=== PATIENT | male | born 1965 | race Caucasian/White ===

== ENCOUNTER 2019-12-31 09:48 | Day surgery (SDC) | payer OTHER ==
[2019-12-26 11:17] LABS: HEMATOCRIT 40.1 % (37.9-51.0); HEMOGLOBIN 14.3 g/dL (13.5-17.0); MEAN CORPUSCULAR HEMOGLOBIN 30.1 pg (27.0-33.4); MEAN CORPUSCULAR HGB CONC 35.7 g/dL (32.0-36.0); MEAN CORPUSCULAR VOLUME 84 fl (80-97); PLATELET COUNT 178 10^3/uL (150-450); RED BLOOD COUNT 4.75 10^6/uL (4.35-5.55); RED CELL DISTRIBUTION WIDTH 14.9 % (11.5-14.0); WHITE BLOOD COUNT 7.4 10^3/uL (4.0-10.5)
[2019-12-26 11:24] LABS: APPEARANCE,URINE CLEAR; BILIRUBIN,URINE NEGATIVE (NEGATIVE); COLOR,URINE YELLOW; GLUCOSE, URINE NEGATIVE (NEGATIVE); KETONES,URINE NEGATIVE (NEGATIVE); LEUKOCYTE ESTERASE,URINE NEGATIVE (NEGATIVE); NITRITE,URINE NEGATIVE (NEGATIVE); PROTEIN,URINE NEGATIVE (NEGATIVE); URINE SPECIFIC GRAVITY 1.009; UROBILINOGEN,URINE NEGATIVE mg/dL (<2.0)
[2019-12-26 11:35] LABS: ANION GAP 14 (5-19); BLOOD UREA NITROGEN 14 mg/dL (7-20); CALCIUM 9.8 mg/dL (8.4-10.2); CARBON DIOXIDE 28 mmol/L (22-30); CHLORIDE 97 mmol/L (98-107); GLUCOSE 176 mg/dL (75-110); POTASSIUM 3.6 mmol/L (3.6-5.0)
--- NOTE | 2019-12-26 12:29 | RADIOLOGY REPORT (SQ) ---
EXAM DESCRIPTION: CHEST PA/LATERAL IMAGES COMPLETED DATE/TIME: 12/26/2019 10:48 am REASON FOR STUDY: PRE-OP COMPARISON: 02/26/2013 EXAM PARAMETERS: NUMBER OF VIEWS: two views TECHNIQUE: Digital Frontal and Lateral radiographic views of the chest acquired. RADIATION DOSE: NA LIMITATIONS: none FINDINGS: LUNGS AND PLEURA: No opacities, masses or pneumothorax. No pleural effusion. MEDIASTINUM AND HILAR STRUCTURES: No masses or contour abnormalities. HEART AND VASCULAR STRUCTURES: Heart normal size. No evidence for failure. BONES: No acute findings. HARDWARE: None in the chest. OTHER: No other significant finding. IMPRESSION: NO SIGNIFICANT RADIOGRAPHIC FINDING IN THE CHEST. TECHNICAL DOCUMENTATION: JOB ID: [id number] 2010 [employer]- All Rights Reserved Reading location - IP/workstation name: [email or web address]
--- NOTE | 2019-12-26 18:04 | EKG REPORT ---
SEVERITY:- BORDERLINE ECG - SINUS RHYTHM BORDERLINE R WAVE PROGRESSION, ANTERIOR LEADS : Confirmed by: Edilberto Whipple MD 26-Dec-2019 18:03:47
[~2019-12-31 09:48] MED LIST: CEFAZOLIN 2 GM/D5W RTU 2 GM/50 ML RTUPB IV PRN; DEXAMETHASONE SOD PHOSPHATE INJ 4 MG/1 ML VIAL ONE; FENTANYL CITRATE INJ/PF 100 MCG/2 ML AMPUL ONE; LACTATED RINGERS 1000 ML IV PRN; LIDOCAINE 0.5% INJ-PF (5 MG/ML) 50 ML SDV SUBCUT PRN; MIDAZOLAM 2 MG/2 ML INJ ONE; ONDANSETRON HCL INJ/PF 4 MG/2 ML SDV ONE; PROPOFOL INJ 200 MG/20 ML VIAL IV ONE; SUCCINYLCHOLINE CHLORIDE INJ 200 MG/10 ML VIAL ONE
[2019-12-31] MEDS ORDERED: CEFAZOLIN 2 GM/D5W RTU 2 GM/50 ML RTUPB IV ONE (10:05)
[2019-12-31] MEDS ORDERED: BUPIVACAINE HCL 0.5 % INJ/PF 30 ML SDV ONE ×2 (12:17→12:30)
[2019-12-31] MEDS ORDERED: LIDOCAINE 1% INJ-PF (10 MG/ML) 30 ML SDV ONE (12:17)
[2019-12-31] MEDS ORDERED: MEPERIDINE HCL/PF INJ 25 MG/1 ML DISP.SYRIN IV PRN (13:20)
[2019-12-31] MEDS ORDERED: FENTANYL CITRATE INJ/PF 100 MCG/2 ML AMPUL IV PRN ×3 (13:20)
[2019-12-31] MEDS ORDERED: MORPHINE SULFATE 10 MG/ML INJ IV PRN ×2 (13:20→14:06)
[2019-12-31] MEDS ORDERED: ONDANSETRON HCL INJ/PF 4 MG/2 ML SDV IV PRN (13:20)
[2019-12-31] MEDS ORDERED: PROMETHAZINE HCL INJ 25 MG/1 ML VIAL IV PRN ×2 (13:20)
[2019-12-31] MEDS ORDERED: DIPHENHYDRAMINE HCL 50 MG/ML VIAL IV PRN (13:20)
[2019-12-31] MEDS ORDERED: BUPIVACAINE HCL 0.5 % INJ/PF 30 ML SDV INFIL ONE (13:52)
--- NOTE | 2019-12-31 14:05 | Operative Report ---
Operative Report DATE OF SURGERY: 12/31/19 PREOPERATIVE DIAGNOSIS: Right third MCP joint osteoarthritis POSTOPERATIVE DIAGNOSIS: Same OPERATION: Right third MCP joint silicone arthroplasty SURGEON: EDENILSON JONES ANESTHESIA: GA COMPLICATIONS: None ESTIMATED BLOOD LOSS: Minimal PROCEDURE: Indication for above procedure: 54-year-old male with longstanding history of MCP joint osteoarthritis. Attempted conservative including anti-inflammatory medication, mobilization and injections which did provide some relief but not long-term symptomatic relief. Patient continued to have discomfort which was limiting his quality of life at that point decision was made to proceed with operative intervention. Risk and benefits were explained patient verbalized understanding consented for surgical procedure. Procedure In Detail: Patient was seen and evaluated in the preoperative holding area. The right upper extremity was initialized and marked. Patient received 2g of Ancef IV for bacterial prophylaxis. Patient was taken back to the operative room where transferred to the operative table and placed under general anesthesia. Once they were adequately anesthetized a nonsterile tourniquet was placed on the upper extremity. A surgical team debriefing was performed ensuring all instrumentation was available, the surgical procedure was discussed with possible concerns reviewed. The upper extremity was prepped with chlorhexidine and alcohol and draped in a sterile fashion. A timeout was done identifying correct patient, procedure and extremity everyone in attendance agree with this and verbalized no concerns. The extremity was exsanguinated the tourniquet was inflated to 250 mmHg. Longitudinal skin incision was made along the MCP joint. Blunt dissection was performed. Dorsal veins were retracted and small tributaries coagulated bipolar cautery. Extensor mechanism was then split midline and separately from the capsule. A longitudinal capsulotomy was then made and the collateral ligaments were recessed but not completely released. There was significant eburnation of the metacarpal head with no remaining cartilage noted and significant sclerosis along the proximal phalanx. With C arm guidance metacarpal resection was performed. The canal was started with the opening all along the metacarpal. Broaches began with a 0 broach up to 20 broach until good fit was noted and confirmed with C arm fluoroscopy. Then began preparation of the proximal phalanx with a starting awl increasing broach up to size 20. Once complete a trial implant was inserted. Patient had full range of motion with wrist flexion/extension and tenodesis. Implant was then removed. Wound was copiously irrigated with normal saline. Bone edges were smoothed to avoid irritation to the implant. C arm was obtained with the implant in position to confirm alignment. The [place] silicone MCP joint metacarpophalangeal implant, size 20 was then implanted with a smooth pickup. Final C arm was once again obtained confirming appropriate alignment. Patient had full range of motion with tenodesis. No instability was appreciated. The proper collateral ligaments were then repaired with interrupted 3-0 Ethibond suture. Capsule was closed with 3-0 Ethibond suture. Extensor tendon was closed with 3-0 Ethibond and 3-0 Vicryl suture. Wound was once again irrigated with normal saline. Tourniquet was deflated and peripheral bleeding was controlled with bipolar cautery into the wound was dry. Skin was closed with running subcuticular 4-0 Monocryl reinforced with Dermabond and Steri-Strips. Patient was placed in a volar splint with the MCP joints at 30 degrees of flexion with the IP joints free. Sponge counts, instrument counts, needle counts were correct. Patient was then awoken from anesthesia. Transferred from the operating room table to the operating room stretcher. There was no intraoperative complications patient tolerated procedure well stable to PACU. Postop plan: Patient follow the office in 2 weeks for wound check. Will begin physical therapy 2 weeks postoperative. Beginning with active and active assisted range of motion from 2-4 weeks postoperatively may begin passive range of motion 4 weeks postoperatively and strengthening at 6 weeks postoperatively.
[2019-12-31] MEDS ORDERED: OXYCODONE-ACETAMINOPHEN 5-325 MG TABLET PO PRN (14:06)
--- NOTE | 2019-12-31 14:06 | Discharge Summary ---
Discharge Summary (SDC) - Discharge Final Diagnosis: Right third MCP joint osteoarthritis Date of Surgery: 12/31/19 Discharge Date: 12/31/19 Condition: Good Treatment or Instructions: Schedule Follow Up w/ Dr. Zheng Das @ [facility] for Surgery to be seen in 10-14 days or as scheduled [place]: [place]: [place]: Ice and elevate Keep splint clean/dry/intact, do not remove. If your fingers become numb please unwrap the Harpreet wrap but leave the splint in place, if the sensation does not return within 30 minutes please return to the emergency department. May begin finger range of motion attempting to make full fist. Please use ibuprofen (Motrin or Advil) 600-800 mg every 8 hours as needed for pain or fever DO NOT TAKE w/ TORADOL may use once TORADOL complete. You may also use acetaminophen (Tylenol) 1000 mg every 4-6 hours as needed for pain or fever. Please be aware that many medications contain acetaminophen, do not exceed a total of 1000 mg of acetaminophen every 6 hours. If ibuprofen and acetaminophen are not sufficient for your pain you may take the Percocet/Be[place]ont. Please be aware that the Percocet/Beaumont does contain Tylenol. Stool softener of choice when on pain medication. USE OF ESJH-PZK-AARTLFC IBUPROFEN: Ibuprofen (Advil, Nuprin, Medipren, Motrin IB) is a medication for fever and pain control. In addition, it has anti- inflammatory effects which may be beneficial, especially in the treatment of injuries. It's best to take ibuprofen with food. Persons with ulcer disease or allergy to aspirin should notify their physician of this before taking ibuprofen. Ibuprofen can be given every four to six hours, for a total of four doses daily. Age Pain or fever dose Antiinflammatory dose 6-8 yr 200 mg (1 tab) 200 mg (1 tab) 9-11 yr 200 mg (1 tab) 200-400 mg (1-2 tab) 11-14 yr 200-400 mg (1-2 tab) 400 mg (2 tab) 15-adult 400 mg (2 tab) 600 mg (3 tab) ORAL NARCOTIC MEDICATION: You have been given a prescription for pain control. This medication is a narcotic. It's best taken with food, as nausea can result if taken on an empty stomach. Don't operate machinery or drive within six hours of taking this medication. Do not combine this medicine with alcohol, or with any medication which can cause sedation (such as cold tablets or sleeping pills) unless you get permission from the physician. Narcotics tend to cause constipation. If possible, drink plenty of fluids and eat a diet high in fiber and fruits. Please be aware that prescription narcotics also have the potential for abuse. People become addicted to these medications because of the general sense of wellbeing that they induce. This feeling along with a significant reduction in tension, anxiety, and aggression provides a stimulating seductive quality to these drugs. Once your pain is under control, we encourage you to discard your unused narcotics. Prescriptions: Ketorolac Tromethamine [Toradol 10 mg Tablet] 10 mg PO Q8HP PRN #12 tablet PRN Reason: Oxycodone HCl/Acetaminophen [Percocet 5-325 mg Tablet] 1 tab PO Q6 PRN #25 tab PRN Reason: Referrals: SENTHIL COOK PA [Primary Care Provider] - Discharge Diet: As Tolerated Respiratory Treatments at Home: Deep Breathing/Coughing, Incentive Spirometer Discharge Activity: No Lifting Over 10 Pounds, No Lifting/Push/Pulling Report the Following to Your Physician Immediately: Fever over 101 Degrees, Unusual Bleeding, Redness, Swelling, Warmth, Increased Soreness
[2019-12-31] MEDS ORDERED: PROPOFOL INJ 200 MG/20 ML VIAL IV ONE (14:14)
--- NOTE | 2019-12-31 14:21 | RADIOLOGY REPORT (SQ) ---
EXAM DESCRIPTION: HAND RIGHT 3 VIEWS; NO CHG FLUORO IMAGES COMPLETED DATE/TIME: 12/31/2019 2:11 pm REASON FOR STUDY: ARTHROPLASTY 3RD MCP M19.041 PRIMARY OSTEOARTHRITIS, RIGHT HAND M79.642 PAIN IN LEFT HAND COMPARISON: None. FLUOROSCOPY TIME: 21 seconds Spot images saved to PACS. TECHNIQUE: Intra-operative images acquired during surgical procedure to evaluate progress. NUMBER OF IMAGES: 3 LIMITATIONS: None. FINDINGS: Fluoroscopy was provided for intraoperative procedure. Please refer to the operative repo rt for further discussion. IMPRESSION: IMAGE(S) OBTAINED DURING PROCEDURE. COMMENT: Quality ID [id number]: Final reports for procedures using fluoroscopy that document radiation exp osure indices, or exposure time and number of fluorographic images (if radiation exposure indices are not available) Please consult full operative report of the attending physician for description of the procedure. TECHNICAL DOCUMENTATION: JOB ID: [id number] 2010 [employer]- All Rights Reserved Reading location - IP/workstation name: [email or web address]
--- NOTE | 2019-12-31 14:21 | RADIOLOGY REPORT (SQ) ---
EXAM DESCRIPTION: HAND RIGHT 3 VIEWS; NO CHG FLUORO IMAGES COMPLETED DATE/TIME: 12/31/2019 2:11 pm REASON FOR STUDY: ARTHROPLASTY 3RD MCP M19.041 PRIMARY OSTEOARTHRITIS, RIGHT HAND M79.642 PAIN IN LEFT HAND COMPARISON: None. FLUOROSCOPY TIME: 21 seconds Spot images saved to PACS. TECHNIQUE: Intra-operative images acquired during surgical procedure to evaluate progress. NUMBER OF IMAGES: 3 LIMITATIONS: None. FINDINGS: Fluoroscopy was provided for intraoperative procedure. Please refer to the operative repo rt for further discussion. IMPRESSION: IMAGE(S) OBTAINED DURING PROCEDURE. COMMENT: Quality ID [id number]: Final reports for procedures using fluoroscopy that document radiation exp osure indices, or exposure time and number of fluorographic images (if radiation exposure indices are not available) Please consult full operative report of the attending physician for description of the procedure. TECHNICAL DOCUMENTATION: JOB ID: [id number] 2010 [employer]- All Rights Reserved Reading location - IP/workstation name: [email or web address]
[2019-12-31] MEDS ORDERED: OXYCODONE-ACETAMINOPHEN 5-325 MG TABLET ONE (14:49)
[2019-12-31 16:32] VITALS: BP 128/81
== END 2019-12-31 16:00 | disposition home or self-care (01) ==
LOC: OROUT 09:48
PROVIDERS: ATTEND Orthopaedic Surgery
DX: M19.041 Primary osteoarthritis, right hand (principal); Z03.818 Encounter for observation for suspected exposure to other biological agents ruled out; Z79.899 Other long term (current) drug therapy; E11.9 Type 2 diabetes mellitus without complications; Z79.84 Long term (current) use of oral hypoglycemic drugs; I10 Essential (primary) hypertension; E78.2 Mixed hyperlipidemia
CPT/HCPCS: 26531; C1776; 01830; 36415; 71046; 80048; 81001; 82962; 83036; 85027; 87635; 93005; 93010; C9803; J0330; J0690; J1100; J2250; J2405; J2704; J3010; J3490